=== PATIENT | female | born 1965 | race Caucasian/White ===

== ENCOUNTER → 2018-09-26 | Outpatient (CLI) | payer BC ==
[2005-06-22 02:46] VITALS: PULSE 76; TEMP 98.2
[~2018-09-26] MED LIST: PROAIR HFA0.09 MG/AC IH; ULTRAM 50MG TAB50 MG PO; ZOFRAN8 MG PO
== END ==
LOC: MC.RAD 07:15
DX: Z12.31 Encounter for screening mammogram for malignant neoplasm of breast (principal)